=== PATIENT | male | born 1960 | race Caucasian/White ===

== ENCOUNTER 2016-10-19 07:00 | Day surgery (SDC) | payer OTHER ==
[~2016-10-19] VITALS: Ht 188 cm; Wt 94.3 kg
[2016-10-19 07:19] VITALS: BP 119/83; PULSE 93; TEMP 98.3
[2016-10-19] MEDS ORDERED: PROTONIX 40MG T40 MG PO (07:41)
[2016-10-19] MEDS ORDERED: NORCO 325 MG-51 TAB PO (07:50)
[2016-10-19] MEDS ORDERED: CARAFATE 1GM1 G PO (07:52)
[2016-10-19] MEDS ORDERED: PROAIR HFA0.09 MG/AC IH (07:54)
[2016-10-19] MEDS ORDERED: CELEBREX50 MG PO (07:54)
[2016-10-19] MEDS ORDERED: OMEGA-3 1000 MG1 CAP PO (07:55)
[2016-10-19 08:45] VITALS: BP 112/79; PULSE 77
[2016-10-19 09:00] VITALS: BP 115/87; PULSE 75
[2016-10-19 09:15] VITALS: BP 130/78; PULSE 79
== END 2016-10-19 09:30 | disposition home or self-care (01) ==
LOC: SDCO 07:00
DX: K22.70 Barrett's esophagus without dysplasia (principal); K21.9 Gastro-esophageal reflux disease without esophagitis
CPT/HCPCS: J2704; J7030

== ENCOUNTER → 2016-11-27 | Outpatient (CLI) | payer OTHER ==
[~2016-11-27] MED LIST: CARAFATE 1GM1 G PO; CELEBREX50 MG PO; NORCO 325 MG-51 TAB PO; OMEGA-3 1000 MG1 CAP PO; PROAIR HFA0.09 MG/AC IH; PROTONIX 40MG T40 MG PO
== END ==
LOC: COL.PUL 09:04
DX: J43.1 Panlobular emphysema (principal)

== ENCOUNTER → 2018-02-12 | Outpatient (CLI) | payer OTHER | LOC: COL.RAD 08:48 | DX: Z02.71 Encounter for disability determination (principal); M25.561 Pain in right knee ==

== ENCOUNTER → 2019-04-08 | Outpatient (CLI) | payer MEDICARE, OTHER ==
[~2019-04-08] MED LIST changes: +LOPID 600M600 MG/TAB PO; +STIOLTO RESPIMAT4 GM IH
== END ==
LOC: MHCPAIN 12:53
DX: G89.29 Other chronic pain (principal); M79.18 Myalgia, other site
CPT/HCPCS: G0463

== ENCOUNTER → 2019-04-21 | Outpatient (CLI) | payer MEDICARE, OTHER | LOC: COL.RAD 06:36 | DX: K76.0 Fatty (change of) liver, not elsewhere classified (principal); R91.8 Other nonspecific abnormal finding of lung field | CPT/HCPCS: Q9967 ==